=== PATIENT | female | born 1995 ===

== ENCOUNTER 2017-05-10 22:34 | Emergency (ER) | payer OTHER ==
[~2017-05-10] VITALS: Ht 160 cm; Wt 84.4 kg
[~2017-05-10 22:34] MED LIST: CIPR500T4 PO; CYAN100017 PO; FLUC100T2 PO; IOHEXOL 350 MG/ML 10 ML VIAL (for RAD DIAG) IVCONTRAST ONE; TRAM50 PO
[2017-05-10 22:37] VITALS: BP 138/88; PULSE 84; RESP 20; TEMP 98.2; O2SAT 98
[2017-05-10 22:55] VITALS: BP 138/88; PULSE 84; RESP 20; TEMP 98.2; O2SAT 99
--- NOTE | 2017-05-10 22:58 | PD ---
HPI Chief Complaint: Flank/Kidney Pain Time Seen by Provider: 22:48 Travel History International Travel<30 days: No Contact w/Intl Traveler<30days: No Traveled to known affect area: No History of Present Illness HPI 21-year-old female complains of right flank pain and right low quadrant abdominal pain. Patient states that the pain started 4 days ago. Patient states that the pain is sharp pain started on the right flank area with radiation to the right low quadrant of the abdomen. Patient denies any dysuria. Patient states that she has urinary frequency. Patient states that she has vaginal discharge for the past 3 days. Patient denies any fever chills. Patient states that she has intermittent nausea vomiting yesterday and today. Patient states that last menstruation period was 5 weeks ago. PFSH Past Medical History Medical History: Denies Significant Hx High Cholesterol: Yes Diminished Hearing: No Immunizations Current: Yes Tetanus Vaccination: Unknown Influenza Vaccination: No ?: Unknown LMP: 5 WEEKS AGO : 0 Past Surgical History Surgical History: No Previous Surgery Social History Alcohol Use: Yes (OCC) Tobacco Use: No Substance Use: No Allergies-Medications (Allergen,Severity, Reaction): Coded Allergies: No Known Allergies (Unverified , 05/10/17) Reported Meds & Prescriptions Reported Meds & Active Scripts Active Review of Systems General / Constitutional: No: Fever Eyes: No: Visual changes HENT: No: Headaches Cardiovascular: No: Chest Pain or Discomfort Respiratory: No: Shortness of Breath Gastrointestinal: Positive: Nausea, Vomiting, Abdominal Pain Genitourinary: Positive: Frequency, Discharge, No: Dysuria Musculoskeletal: No: Pain Skin: No Rash Neurologic: No: Weakness Psychiatric: No: Depression Endocrine: No: Polydipsia Hematologic/Lymphatic: No: Easy Bruising Physical Exam Narrative GENERAL: Well-nourished, well-developed patient. SKIN: Focused skin assessment warm/dry. HEAD: Normocephalic. EYES: No scleral icterus. No injection or drainage. NECK: Supple, trachea midline. No JVD or lymphadenopathy. CARDIOVASCULAR: Regular rate and rhythm without murmurs, gallops, or rubs. RESPIRATORY: Breath sounds equal bilaterally. No accessory muscle use. GASTROINTESTINAL: Abdomen soft, non-tender, nondistended. MUSCULOSKELETAL: No cyanosis, or edema. BACK: Mild tenderness on right flank area, without obvious deformity. No CVA tenderness. SENIOR DEVOPS ENGINEER exam: Patient has small amount of thick whitish discharge in the vaginal vault. No cervical motion tenderness. Patient has mild spotting from the cervical os. Uterus nonenlarged and nontender on palpation. No adnexal mass or tenderness. Data Data Last Documented VS Vital Signs Date Time Temp Pulse Resp B/P (MAP) Pulse Ox O2 Delivery O2 Flow Rate FiO2 05/10/17 22:55 98.2 84 20 138/88 (105) 99 Room Air Orders Orders Complete Blood Count With Diff (05/10/17 22:52) Comprehensive Metabolic Panel (05/10/17 22:52) Urinalysis - C+S If Indicated (05/10/17 22:52) Beta Hcg (Quant/Titer) (05/10/17 22:52) Wet Prep Profile (05/10/17 22:52) Gc And Chlamydia Pcr (05/10/17 22:52) Iv Access Insert/Monitor (05/10/17 22:52) Ed Urine Pregnancytest Poc (05/10/17 22:52) Ct Abd/Pel W Iv Contrast(Rout) (05/11/17 00:01) Iohexol 350 Inj (Omnipaque 350 Inj) (05/10/17 00:45) Labs Laboratory Tests Test 05/10/17 23:00 05/10/17 23:45 White Blood Count 12.0 TH/MM3 Red Blood Count 4.47 MIL/MM3 Hemoglobin 12.0 GM/DL Hematocrit 36.2 % Mean Corpuscular Volume 81.0 FL Mean Corpuscular Hemoglobin 26.9 PG Mean Corpuscular Hemoglobin Concent 33.1 % Red Cell Distribution Width 12.2 % Platelet Count 309 TH/MM3 Mean Platelet Volume 7.7 FL Neutrophils (%) (Auto) 56.4 % Lymphocytes (%) (Auto) 35.6 % Monocytes (%) (Auto) 6.8 % Eosinophils (%) (Auto) 0.8 % Basophils (%) (Auto) 0.4 % Neutrophils # (Auto) 6.8 TH/MM3 Lymphocytes # (Auto) 4.3 TH/MM3 Monocytes # (Auto) 0.8 TH/MM3 Eosinophils # (Auto) 0.1 TH/MM3 Basophils # (Auto) 0.0 TH/MM3 CBC Comment DIFF FINAL Differential Comment Urine Color STRAW Urine Turbidity CLEAR Urine pH 6.0 Urine Specific [place] 1.003 Urine Protein NEG mg/dL Urine Glucose (UA) NEG mg/dL Urine Ketones NEG mg/dL Urine Occult Blood TRACE Urine Nitrite NEG Urine Bilirubin NEG Urine Leukocyte Esterase NEG Urine RBC 0-3 /hpf Urine Squamous Epithelial Cells 0-5 /hpf Urine Mucus RARE /lpf Microscopic Urinalysis Comment CULT NOT INDICATED Blood Urea Nitrogen 8 MG/DL Creatinine 0.72 MG/DL Random Glucose 89 MG/DL Total Protein 8.6 GM/DL Albumin 3.9 GM/DL Calcium Level 9.2 MG/DL Alkaline Phosphatase 64 U/L Aspartate Amino Transf (AST/SGOT) 12 U/L Alanine Aminotransferase (ALT/SGPT) 18 U/L Total Bilirubin 0.2 MG/DL Sodium Level 137 MEQ/L Potassium Level 3.8 MEQ/L Chloride Level 102 MEQ/L Carbon Dioxide Level 26.9 MEQ/L Anion Gap 8 MEQ/L Estimat Glomerular Filtration Rate 102 ML/MIN Human Chorionic Gonadotropin, Quant LESS THAN 1 MIU/ML Clue Cells (Wet Prep) NONE SEEN Vaginal Trichomonas (Wet Prep) NONE SEEN Vaginal Yeast (Wet Prep) NONE SEEN MDM Medical Decision Making Medical Screen Exam Complete: Yes Emergency Medical Condition: Yes Interpretation(s) Last Impressions Abdomen/Pelvis CT 05/11/17 0001 Signed Impressions: Service Date/Time: Thursday, May 11, 2017 00:43 - CONCLUSION: 1. No acute finding is identified within the abdomen or pelvis. The appendix is normal. 2. Trace free fluid in the posterior cul-de-sac within the pelvis. Although nonspecific this likely is physiologic. Slick Cespedes MD 2:03 AM. CBC WBC 12.0. Normal differential. CMP within normal limit. Beta- hCG negative. UA is negative. Wet prep negative. GC chlamydia PCR pending. Differential Diagnosis Differential diagnosis including musculoskeletal, nephrolithiasis, pyelonephritis, ovarian cyst, ovarian torsion, ectopic , PID. Narrative Course 21-year-old female with right flank pain, right low quadrant abdominal pain. Diagnosis Primary Impression: Right flank pain Patient Instructions: General Instructions Additional Instructions: Take medications as directed for pain. Follow-up with personal physician. Return if worse. Med/Other Pt SpecificInfo: Prescription(s) given Scripts Tramadol (Ultram) 50 Mg Tab 50 MG PO Q6H Y for PAIN, #20 TAB 0 Refills Prov: Geoff Munoz MD 05/11/17 Meloxicam (Mobic) 15 Mg Tab 15 MG PO DAILY for Pain, #20 TAB 0 Refills Prov: Geoff Munoz MD 05/11/17 Disposition: 01 DISCHARGE HOME Condition: Stable Geoff Munoz MD May 10, 2017 22:58
[2017-05-10 23:19] LABS: AUTOMATED NEUTROPHIL # 6.8 TH/MM3 (1.8-7.7); BASOPHIL % 0.4 % (0.0-2.0); EOSINOPHIL # 0.1 TH/MM3 (0-0.4); EOSINOPHIL % 0.8 % (0.0-4.0); HEMATOCRIT 36.2 % (35.0-46.0); HEMO FLAGS DIFF FINAL; LYMPH % 35.6 % (9.0-44.0); LYMPHOCYTE # 4.3 TH/MM3 (1.0-4.8); MEAN CORPUSCULAR HEMOGLOBIN 26.9 PG (27.0-34.0); MEAN CORPUSCULAR HGB CONC 33.1 % (32.0-36.0); MONO % 6.8 % (0.0-8.0); NEUT % 56.4 % (16.0-70.0); PLATELET COUNT 309 TH/MM3 (150-450); RED BLOOD COUNT 4.47 MIL/MM3 (4.00-5.30); RED CELL DISTRIBUTION WIDTH 12.2 % (11.6-17.2)
[2017-05-10 23:26] LABS: BLOOD, URINE TRACE (NEG); CHLORIDE 102 MEQ/L (98-107); GLUCOSE,URINE NEG (NEG); KETONE, URINE NEG (NEG); NITRITE,URINE NEG (NEG); POTASSIUM 3.8 MEQ/L (3.5-5.1); SODIUM (NA) 137 MEQ/L (136-145)
[2017-05-10 23:30] LABS: ANION GAP 8 MEQ/L (5-15); BICARBONATE 26.9 MEQ/L (21.0-32.0); BLOOD UREA NITROGEN 8 MG/DL (7-18)
[2017-05-10 23:31] LABS: MUCUS URINE RARE /lpf (OCC); URINE COLOR STRAW (YELLW/STRAW)
[2017-05-10 23:32] LABS: RBC, URINE 0-3 /hpf (0-3); SQUAMOUS EPITHELIAL CELL URINE 0-5 /hpf (0-5)
[2017-05-10 23:33] LABS: ALT (GPT) 18 U/L (10-53); AST (GOT) 12 U/L (15-37); COMMENT (UR) CULT NOT INDICATED; CULTURE IF INDICATED CULT NOT INDICATED; GLOMERULAR FILTRATION RATE 102 ML/MIN (>89)
[2017-05-10 23:34] LABS: TOTAL BILIRUBIN ADULT 0.2 MG/DL (0.2-1.0)
[2017-05-10 23:36] LABS: ALKALINE PHOSPHATASE 64 U/L (45-117)
[2017-05-10 23:38] LABS: BETA HCG QUANT LESS THAN 1 MIU/ML (0-5)
--- NOTE | 2017-05-11 01:01 | RADRPT ---
EXAM DATE/TIME: 05/11/2017 00:43 [facility] COMPARISON: CT ABDOMEN & PELVIS W CONTRAST, October 08, 2015, 17:55. INDICATIONS : Right lower quadrant and flank pain. IV CONTRAST: 100 cc Omnipaque 350 (iohexol) IV ORAL CONTRAST: No oral contrast ingested. RADIATION DOSE: 15.15 CTDIvol (mGy) MEDICAL HISTORY : None SURGICAL HISTORY : None. ENCOUNTER: Initial ACUITY: 4 - 6 days PAIN SCALE: 6/10 LOCATION: Right lower quadrant TECHNIQUE: Volumetric scanning of the abdomen and pelvis was performed. Using automated exposure control and ad justment of the mA and/or kV according to patient size, radiation dose was kept as low as reasonably achievable to obtain optimal diagnostic quality images. DICOM format image data is available electro nically for review and comparison. FINDINGS: There is respiratory motion artifact. LOWER LUNGS: The visualized lower lungs are clear. LIVER: Homogeneous density without lesion. There is no dilation of the biliary tree. No calcified gallston es. SPLEEN: Normal size without lesion. PANCREAS: Within normal limits. KIDNEYS: Normal in size and shape. There is no mass, stone or hydronephrosis. ADRENAL GLANDS: Within normal limits. VASCULAR: There is no aortic aneurysm. BOWEL/MESENTERY: The stomach, small bowel, and colon demonstrate no acute abnormality. There is no free intraperitone al air. The appendix is normal. There is trace free fluid in the posterior cul-de-sac within the pelv is. ABDOMINAL WALL: Within normal limits. RETROPERITONEUM: There is no lymphadenopathy. BLADDER: No wall thickening or mass. REPRODUCTIVE: Within normal limits. There is a rim-enhancing left corpus luteal cyst. INGUINAL: There is no lymphadenopathy or hernia. MUSCULOSKELETAL: There is mild sclerosis adjacent to the left sacroiliac joint, stable from the prior study. CONCLUSION: 1. No acute finding is identified within the abdomen or pelvis. The appendix is normal. 2. Trace free fluid in the posterior cul-de-sac within the pelvis. Although nonspecific this likely i s physiologic. Slick Cespedes MD on May 11, 2017 at 0:55 Board Certified Radiologist. This report was verified electronically.
[2017-05-11] MEDS ORDERED: MOBI15TA PO (02:09)
[2017-05-11] MEDS ORDERED: ULTR50TA5 PO (02:09)
[2017-05-11 02:10] VITALS: BP 131/84
[2017-05-11 05:04] LABS: CHLAMYDIA PCR NOT DETECTED (NOT DETECT); NEISSERIA PCR NOT DETECTED (NOT DETECT)
== END 2017-05-11 02:17 | disposition home or self-care (01) ==
LOC: PHED 22:34
DX: R10.9 Unspecified abdominal pain (principal); E78.00 Pure hypercholesterolemia, unspecified
CPT/HCPCS: 74177; 80053; 81001; 84702; 84703; 85025; 87210; 87491; 87591; 99285; Q9967